=== PATIENT | female | born 1985 | race Hispanic/Latino ===

== ENCOUNTER 2016-07-12 15:28 | Emergency (ER) | payer OTHER ==
[~2016-07-12] VITALS: Ht 162.6 cm; Wt 88.5 kg
[~2016-07-12 15:28] MED LIST: BUPROPION XL300 M1 PO; CITRANATAL HAR1 EACH PO; NITROFURANTOIN100 M5 PO
--- NOTE | 2016-07-12 15:41 | ED GI/GU/ABDOMINAL COMPLAINT ---
History of Present Illness General Chief Complaint: Female Urogenital Problems Stated Complaint: VAG BLEEDING 2 MONTHS Source: patient Exam Limitations: no limitations Vital Signs & Intake/Output Vital Signs & Intake/Output Vital Signs Date Time Temp Pulse Resp B/P Pulse O2 O2 Flow FiO2 Ox Delivery Rate 07/12 1704 98.1 80 16 113/74 98 Room Air 07/12 1638 97 07/12 1536 97.6 84 16 135/77 98 Room Air Room Air Allergies Coded Allergies: NO KNOWN ALLERGIES (07/12/16) Reconcile Medications Bupropion HCl (Bupropion XL) 300 MG TAB.ER.24H 1 TAB PO QAM ANXIETY/DEPRESSION (Reported) Nitrofurantoin Macrocrystal (Nitrofurantoin) 100 MG CAPSULE 1 CAP PO BID UTI (Reported) Pnv59/Iron,Carb&Fum/FA/Dss/Dha (Citranatal [place] Capsule) 27 MG IRON-1 MG-50 MG-260 MG CAPSULE 1 CAP PO DAILY (Reported) Triage Nurses Notes Reviewed? yes ? Y Is pt currently ? No HPI: 31 y/o female arrived through triage to room 5 for evaluation of vaginal bleeding, 6 weeks . G2, P0. Has been to the ED twice in the poast 4 weeks for similar complaints. She has been having intermittant bleeding and cramping and has had two u/s so far. This morning she had minimal vaginal bleeding that started with clots but then continued through the afternoon, intermittantly which concerned her. She has not gone through pads, just changed them throughout the day when she urinated. She denies any urinary symptoms but did recently have a UTI to complicate these things. She denies any pain at this time but it has been intermittant. She is under the care of Dr. Alexander. (REFUGIO ANSARI APRN) Past History Travel History Traveled to [place] past 21 day No Medical History Any Pertinent Medical History? see below for history Neurological: NONE EENT: NONE Cardiovascular: NONE Respiratory: NONE Gastrointestinal: NONE Hepatic: NONE Renal: NONE Musculoskeletal: NONE Psychiatric: NONE Endocrine: NONE Blood Disorders: NONE Cancer(s): NONE [employer] F[employer] WORKER/Reproductive: NONE Surgical History Surgical History: none Psychosocial History What is your primary language Chinese Tobacco Use: Never used ETOH Use: denies use Illicit Drug Use: denies illicit drug use Family History Hx Contributory? No (REFUGIO ANSARI APRN) Review of Systems Review of Systems Constitutional: Reports: no symptoms. EENTM: Reports: no symptoms. Respiratory: Reports: no symptoms. Cardiovascular: Reports: no symptoms. GI: Reports: see HPI, abdominal pain. Genitourinary: Denies: no symptoms. Musculoskeletal: Reports: no symptoms. Skin: Reports: no symptoms. Neurological/Psychological: Reports: no symptoms. Hematologic/Endocrine: Reports: no symptoms. Immunologic/Allergic: Reports: no symptoms. All Other Systems: Reviewed and Negative Comments vaginal bleeding no fever, chills, urinary s/s (REFUGIO ANSARI APRN) Physical Exam Physical Exam General Appearance: well developed/nourished, no apparent distress, alert, awake , comfortable Head: atraumatic, normal appearance Neck: normal inspection, supple, full range of motion, normal alignment Respiratory: normal breath sounds, chest non-tender, no respiratory distress, quiet respiration Cardiovascular: regular rate/rhythm, normal peripheral pulses Gastrointestinal: normal bowel sounds, soft, non-tender Back: normal inspection, normal range of motion, vertebral tenderness Extremities: normal range of motion Neurologic/Psych: no motor/sensory deficits, awake, alert, oriented x 3, normal gait, normal mood/affect Skin: intact, normal color, warm/dry Comments: Nontoxic well-appearing. Tolerating food and fluids well Core Measures ACS in differential dx? No Severe Sepsis Present: No Septic Shock Present: No (REFUGIO ANSARI APRN) Progress Differential Diagnosis: threatened AB, UTI/pyelo Plan of Care: Orders Procedure Date/time Status CULTURE,URINE 07/12 1542 Active URINALYSIS 07/12 154 Complete HUMAN BETA HCG TITRE 07/12 1542 Complete CBC WITHOUT DIFFERENTIAL 07/12 154 Complete Laboratory Tests 07/12/16 1551: Beta HCG, Quant 85668.0, CBC w Diff NO MAN DIFF REQ, RBC 4.85, MCV 86.4, MCH 29.6, RDW 13.3, MPV 7.7, Gran % 57.1, Lymphocytes % 32.6, Monocytes % 8.7, Eosinophils % 1.0, Basophils % 0.6, Absolute Granulocytes 2.8, Absolute Lymphocytes 1.6, Absolute Monocytes 0.4, Absolute Eosinophils 0, Absolute Basophils 0, PUBS MCHC 34.2, Urine Color YEL, Urine Clarity HAZY H, Urine pH 6.0, Ur Specific [place] >= 1.030, Urine Protein TRACE H, Urine Ketones TRACE H, Urine Nitrite NEG, Urine Bilirubin NEG, Urine Urobilinogen 0.2, Ur Leukocyte Esterase TRACE H, Ur Microscopic SEDIMENT EXAMINED, Urine RBC 1-3, Urine WBC 3- 5 H, Ur Epithelial Cells MANY H, Urine Mucus MANY H, Urine Hemoglobin LARGE H, Urine Glucose NEG Microbiology 07/12 1551 URINE ROUT: Urine Culture - RECD Diagnostic Imaging: Viewed by Me: Ultrasound. Discussed w/RAD: Ultrasound. Initial ED EKG: none Comments: PATIENT: ALAN BLAND PRESENT AGE: 31 PATIENT ACCOUNT NO: [id number] : 85 LOCATION: [facility] ORDERING PHYSICIAN: REFUGIO ANSARI APRN SERVICE DATE: 07/12/16 EXAM TYPE: US - US TRANSVAG EXAMINATION: US OBSTETRICAL ULTRASOUND CLINICAL INFORMATION: Early with vaginal bleeding and cramping. COMPARISON: Ultrasound evaluation 07/04/2016, 06/30/2016. LMP: 05/20/2016. Gestational age by maternal dates is 7 weeks 4 days. Estimated date of delivery by maternal dates is 02/24/2017. TECHNIQUE: Ultrasound of the maternal pelvis is performed using transabdominal and transvaginal transducers. Transvaginal imaging is performed due to inadequate visualization transabdominally. M-mode Doppler is also performed. FINDINGS: There is a single intrauterine gestational sac with visible yolk sac, embryo/fetus, and cardiac activity. There may be small subchorionic hemorrhage at caudal aspect measuring only 0.7 x 1.4 cm. Cervix measures at least 3.8 cm in length. HR: 141 beats per minute CRL (crown rump length): 0.99 cm (7 weeks 4 days +/- 4 days) BUDDY (estimated date of delivery): 02/24/2017 +/- 4 days. MATERNAL ADNEXA: The right maternal ovary measures 2.5 x 2.2 x 1.7 cm. The left maternal ovary measures 3.4 x 2.5 x 2.4 cm. There is no significant maternal adnexal mass. No maternal pelvic ascites. IMPRESSION: 1. Single intrauterine gestation with ultrasound gestational age of 7 weeks 4 days +/- 4 days. 2. The estimated date of delivery is 02/24/2017 +/- 4 days. 3. Small subchorionic hemorrhage adjacent to caudal aspect gestational sac 0.7 x 1.4 cm. 4. No maternal adnexal mass or pelvic ascites. DICTATED BY: IRAIDA WINN MD DATE/TIME DICTATED:07/12/161655 NEWSPAPER PEDDLER:RISA DATE/TIME TRANSCRIBED:07/12/161655 CONFIDENTIAL, DO NOT COPY WITHOUT APPROPRIATE AUTHORIZATION. <Electronically signed in Other Vendor System> SIGNED BY: IRAIDA WINN MD [id number] explained u/s and lab work results to patient and explained the need to call Dr. Alexander on Thursday due to u/s results. (REFUGIO ANSARI APRN) Departure Departure Time of Disposition: 1658 Disposition: HOME OR SELF CARE Condition: Stable Clinical Impression Primary Impression: Threatened in early Secondary Impressions: Subchorionic hemorrhage in first trimester Referrals: ANSON MANN (PCP/Family) JASPAL SYLVESTER,BC Tariq Additional Instructions: Please follow up with Dr. Watts. Call her on Thursday to explain that your back in the emergency department for continued vaginal bleeding with clots. Departure Forms: Customer Survey General Discharge Information (REFUGIO ANSARI APRN) PA/LIME SLUDGE KILN OPERATOR Co-Sign Statement Statement: ED Attending supervision documentation- [] I saw and evaluated the patient. I have also reviewed all the pertinent lab results and diagnostic results. I agree with the findings and the plan of care as documented in the PA's/LIME SLUDGE KILN OPERATOR's documentation. [X] I have reviewed the ED Record and agree with the PA's/LIME SLUDGE KILN OPERATOR's documentation. [] Additions or exceptions (if any) to the PAs/LIME SLUDGE KILN OPERATOR's note and plan are summarized below: [] (BALAJI SYLVESTER,KRISTINE)
[2016-07-12 16:06] LABS: ABSOLUTE BASOPHIL COUNT 0 /CUMM (0.0-0.2); ABSOLUTE EOSINOPHIL COUNT 0 /CUMM (0.0-0.7); ABSOLUTE GRANULOCYTE CT 2.8 /CUMM (1.4-6.5); ABSOLUTE LYMPH COUNT 1.6 /CUMM (1.2-3.4); ABSOLUTE MONOCYTE COUNT 0.4 /CUMM (0.10-0.60); BASOPHIL % 0.6 % (0.0-2.0); GRANULOCYTE % 57.1 % (42.2-75.2); HEMATOCRIT 41.9 % (37-47); MEAN CORPUSCULAR HGB 29.6 PG (27.0-31.0); MEAN CORPUSCULAR HGB CONC 34.2 G/DL (33.0-37.0); MEAN CORPUSCULAR VOLUME 86.4 FL (81.0-99.0); MEAN PLATELET VOLUME 7.7 FL (7.4-10.4); PLATELET COUNT 279 /CUMM (130-400); RBC DISTRIBUTION WIDTH 13.3 % (11.5-14.5); RED BLOOD CELL CT 4.85 /CUMM (4.20-5.40)
[2016-07-12 17:04] VITALS: BP 113/74
--- NOTE | 2016-07-12 17:07 | ULTRASOUND REPORT ---
EXAMINATION: US OBSTETRICAL ULTRASOUND CLINICAL INFORMATION: Early with vaginal bleeding and cramping. COMPARISON: Ultrasound evaluation 07/04/2016, 06/30/2016. LMP: 05/20/2016. Gestational age by maternal dates is 7 weeks 4 days. Estimated date of delivery by maternal dates is 02/24/2017. TECHNIQUE: Ultrasound of the maternal pelvis is performed using transabdominal and transvaginal transducers. Transvaginal imaging is performed due to inadequate visualization transabdominally. M-mode Doppler is also performed. FINDINGS: There is a single intrauterine gestational sac with visible yolk sac, embryo/fetus, and cardiac activity. There may be small subchorionic hemorrhage at caudal aspect measuring only 0.7 x 1.4 cm. Cervix measures at least 3.8 cm in length. HR: 141 beats per minute CRL (crown rump length): 0.99 cm (7 weeks 4 days +/- 4 days) BUDDY (estimated date of delivery): 02/24/2017 +/- 4 days. MATERNAL ADNEXA: The right maternal ovary measures 2.5 x 2.2 x 1.7 cm. The left maternal ovary measures 3.4 x 2.5 x 2.4 cm. There is no significant maternal adnexal mass. No maternal pelvic ascites. IMPRESSION: 1. Single intrauterine gestation with ultrasound gestational age of 7 weeks 4 days +/- 4 days. 2. The estimated date of delivery is 02/24/2017 +/- 4 days. 3. Small subchorionic hemorrhage adjacent to caudal aspect gestational sac 0.7 x 1.4 cm. 4. No maternal adnexal mass or pelvic ascites.
== END 2016-07-12 17:06 ==
LOC: ERH 15:28
PROVIDERS: Nurse Practitioner Family
DX: O20.0 Threatened abortion (principal)
CPT/HCPCS: 76817; 81001; 87086

== ENCOUNTER 2016-08-09 13:28 | Emergency (ER) | payer OTHER ==
[~2016-08-09] VITALS: Ht 165.1 cm; Wt 86.2 kg
[2016-08-09 14:00] LABS: ABSOLUTE BASOPHIL COUNT 0 /CUMM (0.0-0.2); ABSOLUTE EOSINOPHIL COUNT 0 /CUMM (0.0-0.7); ABSOLUTE GRANULOCYTE CT 5.1 /CUMM (1.4-6.5); ABSOLUTE LYMPH COUNT 1.9 /CUMM (1.2-3.4); ABSOLUTE MONOCYTE COUNT 0.4 /CUMM (0.10-0.60); BASOPHIL % 0.3 % (0.0-2.0); EOSINOPHIL % 0.6 % (0-5); HEMATOCRIT 41.6 % (37-47); MEAN CORPUSCULAR HGB 29.4 PG (27.0-31.0); MEAN CORPUSCULAR HGB CONC 34.1 G/DL (33.0-37.0); MEAN CORPUSCULAR VOLUME 86.1 FL (81.0-99.0); MEAN PLATELET VOLUME 7.6 FL (7.4-10.4); PLATELET COUNT 301 /CUMM (130-400); RED BLOOD CELL CT 4.83 /CUMM (4.20-5.40); WHITE BLOOD CELL COUNT 7.4 /CUMM (4.8-10.8)
--- NOTE | 2016-08-09 15:31 | ED GI/GU/ABDOMINAL COMPLAINT ---
History of Present Illness General Chief Complaint: Female Urogenital Problems Stated Complaint: ?MISCARRAGE APRROX 12 WKS Source: patient, family, old records Exam Limitations: no limitations Vital Signs & Intake/Output Vital Signs & Intake/Output Vital Signs Date Time Temp Pulse Resp B/P Pulse O2 O2 Flow FiO2 Ox Delivery Rate 08/09 1625 Room Air 08/09 1617 88 16 124/68 98 Room Air 08/09 1336 97.4 89 20 135/91 99 Room Air ED Intake and Output 08/10 0000 08/09 1200 Intake Total Output Total Balance Patient 190 lb Weight Allergies Coded Allergies: NO KNOWN ALLERGIES (07/12/16) Triage Note: PT TO ED C/O ? MISCARRIAGE. STATES IS 3 MONTHS . . STATES 30 MINS AGO STARTED WITH HEAVY VAGINAL BLEEDING. DR ALEXANDER IS OBGYN. DENIES ABD PAIN. Triage Nurses Notes Reviewed? yes ? y Is pt currently ? No HPI: Patient is a 31-year-old female approximately 3 months presents complaining of vaginal bleeding. LMP 05/20/16. Vaginal bleeding onset a couple hours ago. Patient reports she "filled the toilet bowl" 4 times and then when in the shower and was bleeding heavily until she passed a blood clot and then bleeding significantly improved. Patient has been wearing the same pad for the past one hour without soaking through. Patient was feeling lightheaded at home, no lightheadedness currently. Patient's blood bank laboratory technician is Dr. Alexander, has an appointment on 08/13/16. No bleeding up to this point in , no bleeding with her previous . Denies abdominal pain, chest pain, dyspnea, fevers , chills. (CAROLIN STEVEN,MARIXA) Reconcile Medications Bupropion HCl (Bupropion XL) 300 MG TAB.ER.24H 1 TAB PO QAM ANXIETY/DEPRESSION (Reported) Pnv59/Iron,Carb&Fum/FA/Dss/Dha (Citranatal [place] Capsule) 27 MG IRON-1 MG-50 MG-260 MG CAPSULE 1 CAP PO DAILY (Reported) (BALAJI SYLVESTER,KRISTINE) Past History Travel History Traveled to [place] past 21 day No Medical History Any Pertinent Medical History? 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 No (MARIXA POTTER) Review of Systems Review of Systems Constitutional: Denies: chills, fever. EENTM: Reports: no symptoms. Respiratory: Denies: cough, short of breath. Cardiovascular: Denies: chest pain, syncope. GI: Reports: nausea (HUMAN FACTORS SPECIALIST, none currently), vomiting (1 episode prior to arrival). Denies: abdominal pain. Musculoskeletal: Reports: no symptoms. Skin: Reports: no symptoms. Neurological/Psychological: Reports: no symptoms. Hematologic/Endocrine: Reports: see HPI, bleeding. Immunologic/Allergic: Reports: no symptoms. (MARIXA POTTER) Physical Exam Physical Exam General Appearance: well developed/nourished, alert, awake Head: atraumatic, normal appearance Eyes: Bilateral: normal appearance, PERRL, EOMI. Ears, Nose, Throat, Mouth: hearing grossly normal, moist mucous membrane Neck: normal inspection, supple, full range of motion Respiratory: normal breath sounds, chest non-tender, no respiratory distress, lungs clear Cardiovascular: regular rate/rhythm Gastrointestinal: normal bowel sounds, soft, non-tender Pelvic: With Irina MST present in room: minimal blood in vaginal vault, cervix closed on digital exam. Back: normal inspection, normal range of motion Extremities: normal range of motion Neurologic/Psych: no motor/sensory deficits, awake, alert, oriented x 3, normal gait, normal mood/affect Skin: intact, normal color, warm/dry Core Measures ACS in differential dx? No Severe Sepsis Present: No Septic Shock Present: No (MARIXA POTTER) Progress Differential Diagnosis: threatened miscarriage, spontaneous miscarriage, inevitable miscarriage, placenta previa, placental abruption, subchorionic hemorrhage Plan of Care: Orders Procedure Date/time Status HUMAN BETA HCG TITRE 08/09 1331 Complete COMPREHENSIVE METABOLIC PANEL 08/09 1331 Complete CBC WITHOUT DIFFERENTIAL 08/09 1331 Complete RHOGAM WORK-UP 08/09 1331 Complete Laboratory Tests 08/09/16 1340: Anion Gap 11, Estimated GFR > 60, BUN/Creatinine Ratio 11.7, Glucose 85, Calcium 9.9, Total Bilirubin 0.8, AST 21, ALT 35, Alkaline Phosphatase 60, Total Protein 7.8, Albumin 4.0, Globulin 3.8, Albumin/Globulin Ratio 1.1, Beta HCG, Quant 24088.0, CBC w Diff NO MAN DIFF REQ, RBC 4.83, MCV 86.1, MCH 29.4, RDW 13.0, MPV 7.6, Gran % 68.0, Lymphocytes % 25.4, Monocytes % 5.7, Eosinophils % 0.6, Basophils % 0.3, Absolute Granulocytes 5.1, Absolute Lymphocytes 1.9, Absolute Monocytes 0.4, Absolute Eosinophils 0, Absolute Basophils 0, PUBS MCHC 34.[address] Perez. 08/09/2016 4:48:48 PM: Discussed with Dr. Perez: have patient call Dr. Alexander on Thursday, can discharge home. (MARIXA POTTER) Initial ED EKG: none (MARIXA POTTER) Departure Departure Time of Disposition: 1648 Disposition: HOME OR SELF CARE Condition: Stable Clinical Impression Primary Impression: Threatened miscarriage Referrals: ANSON MANN (PCP/Family) JASPAL SYLVESTER,BC Tariq Additional Instructions: Call Dr. Alexander on Thursday for further evaluation and to see if she wants to see you prior to your previously scheduled appointment on 08/13/16. Return to the ER if bleeding through more than 1 pad per hour, increasing pelvic pain or worsening of symptoms. Departure Forms: Customer Survey General Discharge Information (MARIXA POTTER) PA/TRANSITION MANAGER Co-Sign Statement Statement: ED Attending supervision documentation- [x] I saw and evaluated the patient. I have also reviewed all the pertinent lab results and diagnostic results. I agree with the findings and the plan of care as documented in the PA's/TRANSITION MANAGER's documentation. [x] I have reviewed the ED Record and agree with the PA's/TRANSITION MANAGER's documentation. [] Additions or exceptions (if any) to the PAs/TRANSITION MANAGER's note and plan are summarized below: [] (BALAJI SYLVESTER,KRISTINE)
--- NOTE | 2016-08-09 15:51 | ULTRASOUND REPORT ---
EXAMINATION: US TRANSVAGINAL AND TRANSABDOMINAL CLINICAL INFORMATION: Assess . Bleeding. Pain. COMPARISON: None TECHNIQUE: As above. FINDINGS: There is a single live region . The crown-rump length is 4.43 cm corresponding to gestational age of 11 weeks 4 days with a corresponding BUDDY of 03/01/2017. There is normal cardiac activity at 146 bpm. Normal movements. No hemorrhage. Normal appearance of the gestational sac and yolk sac. Both ovaries measure 2 mL in volume bilaterally. No adnexal mass or free fluid. IMPRESSION: Single live intrauterine with an estimate gestational age of 11 weeks 4 days.
[2016-08-09 16:17] VITALS: BP 124/68
== END 2016-08-09 16:54 ==
LOC: ERH 13:28
PROVIDERS: Physician Assistant Medical
DX: O20.0 Threatened abortion (principal)
CPT/HCPCS: 76817